=== PATIENT | male | born 1945 | race Caucasian/White ===

== ENCOUNTER 2019-12-13 08:47 | Inpatient (IN) | payer MEDICARE, BC ==
[~2019-12-13] VITALS: Ht 167.6 cm; Wt 81.2 kg
[2019-12-13 10:20] VITALS: BP 131/87
[2019-12-13] MEDS ORDERED: ZOLPIDEM TARTRATE 10 MG TABLET PO PRN (10:30)
[2019-12-13] MEDS ORDERED: LORazepam 1 MG TABLET PO PRN (10:30)
[2019-12-13] MEDS ORDERED: HALOPERIDOL 5 MG TABLET PO PRN (10:30)
[2019-12-13] MEDS ORDERED: CEPHALEXIN MONOHYDRATE 250 MG CAPSULE PO ONE (14:30)
[2019-12-13] MEDS: CEPHALEXIN MONOHYDRATE 250 MG CAPSULE PO SCH (16:23)
[2019-12-13 16:29] VITALS: BP 147/84
[2019-12-14 00:07] VITALS: BP 140/91
[2019-12-14] MEDS: CEPHALEXIN MONOHYDRATE 250 MG CAPSULE PO SCH ×4 (08:29→17:00)
[2019-12-14 08:53] VITALS: BP 136/82
[2019-12-14] MEDS ORDERED: PHENAZOPYRIDINE HCL 200 MG TABLET PO PRN (15:30)
[2019-12-14] MEDS: TAMSULOSIN HCL 0.4 MG CAPSULE PO SCH ×2 (16:14→17:00)
[2019-12-14 16:25] VITALS: BP 146/84
[2019-12-14] MEDS: RisperiDONE 4 MG TABLET PO SCH (20:59)
[2019-12-14] MEDS: FINASTERIDE 5 MG TABLET PO SCH (20:59)
[2019-12-15 01:47] VITALS: BP 126/74
[2019-12-15 08:33] VITALS: BP 128/79
[2019-12-15] MEDS: AmLODIPine BESYLATE 2.5 MG TABLET PO SCH (09:00)
[2019-12-15] MEDS: TAMSULOSIN HCL 0.4 MG CAPSULE PO SCH ×2 (09:00→16:29)
[2019-12-15] MEDS: CEPHALEXIN MONOHYDRATE 250 MG CAPSULE PO SCH ×3 (09:00→16:28)
[2019-12-15 16:24] VITALS: BP 138/80
[2019-12-15] MEDS: RisperiDONE 4 MG TABLET PO SCH (21:00)
[2019-12-15] MEDS: FINASTERIDE 5 MG TABLET PO SCH (21:00)
[2019-12-16 01:45] VITALS: BP 154/88
[2019-12-16 08:07] VITALS: BP 160/89
[2019-12-16] MEDS: TAMSULOSIN HCL 0.4 MG CAPSULE PO SCH ×2 (09:00→16:35)
[2019-12-16] MEDS: AmLODIPine BESYLATE 2.5 MG TABLET PO SCH (09:00)
[2019-12-16] MEDS: CEPHALEXIN MONOHYDRATE 250 MG CAPSULE PO SCH ×3 (09:00→16:36)
[2019-12-16 17:32] VITALS: BP 140/87
[2019-12-16] MEDS: FINASTERIDE 5 MG TABLET PO SCH (20:35)
[2019-12-16] MEDS: RisperiDONE 4 MG TABLET PO SCH (20:35)
[2019-12-17 07:24] LABS: BASOPHILS % (AUTO) 0.2 % (0.0-2.0); EOSINOPHILS % (AUTO) 1.1 % (1.0-6.0); HEMATOCRIT 43.5 % (41-53); HEMOGLOBIN 14.2 g/dL (13.5-17.5); LYMPHOCYTES # (AUTO) 1.3 K/uL (1.0-4.8); LYMPHOCYTES % (AUTO) 14.7 % (22.0-44.0); MEAN CORPUSCULAR HEMOGLOBIN 31.3 pg (26.0-34.0); MEAN CORPUSCULAR HGB CONC 32.7 G/dL (31.0-37.0); MEAN CORPUSCULAR VOLUME 96 fL (80-100); MONOCYTES # (AUTO) 0.7 K/uL (0.1-1.0); MONOCYTES % (AUTO) 7.6 % (2.0-9.0); NEUTROPHILS # (AUTO) 6.9 K/uL (1.8-7.7); NEUTROPHILS % (AUTO) 76.4 % (40.0-70.0); PLATELET COUNT (AUTO) 338 K/uL (150-450); RED BLOOD CELL COUNT(AUTO) 4.55 MIL/uL (4.50-5.90); RED CELL DISTRIBUTION WIDTH 13.1 % (11.5-14.5)
[2019-12-17 07:58] LABS: HEMOGLOBIN A1C 6.2 % (3.8-5.6)
[2019-12-17 08:16] LABS: ALANINE AMINOTRANSFERASE 24 U/L (12-78); ALBUMIN 4.3 g/dL (3.4-5.0); ALKALINE PHOSPHATASE 63 U/L (46-116); ANION GAP 9 mmol/L (8-16); ASPARTATE AMINOTRANSFERASE 15 U/L (15-37); BILIRUBIN,TOTAL 0.6 mg/dL (0.1-1.0); CALCIUM, TOTAL 9.3 mg/dL (8.8-10.5); CARBON DIOXIDE 28 mmol/L (22-29); CHLORIDE 104 mmol/L (98-107); CHOL/HDL RATIO 3.5 (4.2-7.3); CHOLESTEROL 151 mg/dL (131-200); CREATININE 1.14 mg/dL (0.60-1.30); FREE T4 (FREE THYROXINE) 1.33 ng/dL (0.76-1.46); GLUCOSE,RANDOM 126 mg/dL (70-110); HDL CHOLESTEROL 43 mg/dL (40-60); LDL CHOL (CALC.) 90 mg/dL (0-130); POTASSIUM 4.7 mmol/L (3.5-5.1); SODIUM SERUM 141 mmol/L (136-145); THYROID STIMULATING HORMONE 2.47 uIU/mL (0.36-3.74); TOTAL PROTEIN, SERUM 7.7 g/dL (6.4-8.2); TRIGLYCERIDES 91 mg/dL (15-150); UREA NITROGEN, BLOOD 15 mg/dL (7-18)
[2019-12-17 08:19] LABS: GLOMERULAR FILTR. RATE CALC > 60 mL/min (>60)
[2019-12-17 08:30] VITALS: BP_SYST 134; BP_SYST 140; BP_DIAS 79; BP_DIAS 89
[2019-12-17] MEDS: TAMSULOSIN HCL 0.4 MG CAPSULE PO SCH ×3 (08:43→18:19)
[2019-12-17] MEDS: AmLODIPine BESYLATE 2.5 MG TABLET PO SCH (08:43)
[2019-12-17] MEDS: CEPHALEXIN MONOHYDRATE 250 MG CAPSULE PO SCH ×3 (08:43→16:55)
[2019-12-17 16:15] VITALS: BP 110/88
[2019-12-17] MEDS: RisperiDONE 4 MG TABLET PO SCH (20:57)
[2019-12-17] MEDS: FINASTERIDE 5 MG TABLET PO SCH (20:57)
[2019-12-18 00:25] VITALS: BP 119/78
[2019-12-18 08:13] VITALS: BP 138/73
[2019-12-18] MEDS: AmLODIPine BESYLATE 2.5 MG TABLET PO SCH (09:00)
[2019-12-18] MEDS: TAMSULOSIN HCL 0.4 MG CAPSULE PO SCH (09:00)
[2019-12-18] MEDS: CEPHALEXIN MONOHYDRATE 250 MG CAPSULE PO SCH ×2 (09:03→12:22)
[2019-12-18] MEDS ORDERED: RISP4 PO (11:25)
[2019-12-18] MEDS ORDERED: AMLO2.5T4 PO (11:43)
[2019-12-18] MEDS ORDERED: CEPH-581 PO (11:43)
[2019-12-18] MEDS ORDERED: TAMS-13 PO (11:44)
[2019-12-18] MEDS ORDERED: FINA-27 PO (11:44)
== END 2019-12-18 14:10 | disposition home or self-care (01) | DRG 885 ==
LOC: B2X 10:30 → B2S 12-17 21:42
PROVIDERS: ADMIT Psychiatry & Neurology Child & Adolescent Psychiatry
DX: F20.0 Paranoid schizophrenia (principal); N39.0 Urinary tract infection, site not specified; R45.851 Suicidal ideations; F10.10 Alcohol abuse, uncomplicated; F19.10 Other psychoactive substance abuse, uncomplicated; I10 Essential (primary) hypertension; K21.9 Gastro-esophageal reflux disease without esophagitis; Z79.899 Other long term (current) drug therapy; Z91.5 Personal history of self-harm; Z71.51 Drug abuse counseling and surveillance of drug abuser; Z71.41 Alcohol abuse counseling and surveillance of alcoholic
CPT/HCPCS: 83036; 84439; 84443; 87081